=== PATIENT | male | born 1995 | race Caucasian/White ===

== ENCOUNTER 2018-05-24 15:18 | Emergency (ER) | payer BC, OTHER, MEDICAID ==
[~2018-05-24] VITALS: Ht 182.9 cm; Wt 70.9 kg
[2018-05-24 15:25] VITALS: Ht 182.9 cm; Wt 70.9 kg
[2018-05-24 15:48] LABS: BASOPHILS 0.8 % (0-2); EOSINOPHILS 3.4 % (0-7); HEMOGLOBIN 19.2 g/dL (13.5-17.5); IMMATURE GRANULOCYTES 0.3 % (0-5); LYMPHOCYTES 21.9 % (15-50); MCH 31.8 pg (26.0-34.0); MCHC 36.9 g/dL (31.0-37.0); MCV 86.1 fL (80.0-100.0); MEAN PLATELET VOLUME 8.9 fL (7.4-10.4); MONOCYTES 8.2 % (2-11); NEUTROPHILS 65.4 % (40-80); PLATELET COUNT 230 10x3/uL (130-400); RBC 6.04 10x6/uL (4.20-6.10); RDW 13.7 % (11.5-14.5)
[2018-05-24 16:01] LABS: APTT 29.4 SECONDS (22.8-39.4); PROTIME 12.8 SECONDS (11.6-15.0)
[2018-05-24 16:03] LABS: D-DIMER-QUANTITATIVE < 0.27 ug/mLFEU (0.20-0.54)
[2018-05-24 16:04] LABS: ALBUMIN 4.6 g/dL (3.4-5.0); ALKALINE PHOSPHATASE 95 U/L (46-116); ALT (SGPT) 27 U/L (10-68); BILIRUBIN - TOTAL 1.98 mg/dL (0.2-1.3); CALC OSMOLALITY 277 mosm/kg (275-300); CALCIUM 9.6 mg/dL (8.5-10.1); CARBON DIOXIDE 29.5 mmol/L (21.0-32.0); CHLORIDE - SERUM 101 mmol/L (98-107); CREATININE - SERUM 0.9 mg/dL (0.6-1.3); GLUCOSE 87 mg/dL (74-106); POTASSIUM - SERUM 3.5 mmol/L (3.5-5.1); PROTEIN - SERUM 8.7 g/dL (6.4-8.2); SODIUM 141 mmol/L (136-145); UREA NITROGEN 7 mg/dL (7-18); eGFR NON AFRICAN AMERICAN > 90 mL/min (90-120)
[2018-05-24 16:30] LABS: CKMB 0.9 U/L (0.0-3.6); CREATINE KINASE 122 UL (21-232); MAGNESIUM - SERUM 2.1 mg/dL (1.8-2.4)
[2018-05-24 16:44] LABS: TROPONIN-I < 0.017 ng/mL (0.000-0.060)
[2018-05-24] MEDS ORDERED: OMEPRAZOLE40 MG PO (18:56)
[2018-05-24 19:32] VITALS: BP 161/102
== END 2018-05-24 19:34 | disposition home or self-care (01) ==
LOC: D.ER 15:18
PROVIDERS: Family Medicine
DX: R07.9 Chest pain, unspecified (principal); R53.83 Other fatigue; K21.9 Gastro-esophageal reflux disease without esophagitis; F17.200 Nicotine dependence, unspecified, uncomplicated

== ENCOUNTER 2018-06-12 10:17 | Emergency (ER) | payer BC, MEDICAID ==
[~2018-06-12] VITALS: Ht 182.9 cm; Wt 68.2 kg
[~2018-06-12 10:17] MED LIST: OMEPRAZOLE40 MG PO
[2018-06-12 10:21] VITALS: Ht 182.9 cm; Wt 68.2 kg
[2018-06-12] MEDS ORDERED: HYZAAR 100-25 T1 TAB PO (10:23)
[2018-06-12 10:58] LABS: BASOPHILS 0.4 % (0-2); EOSINOPHILS 1.8 % (0-7); HEMATOCRIT 48.3 % (42.0-54.0); IMMATURE GRANULOCYTES 0.3 % (0-5); LYMPHOCYTES 23.5 % (15-50); MCH 31.9 pg (26.0-34.0); MCHC 37.3 g/dL (31.0-37.0); MCV 85.5 fL (80.0-100.0); MEAN PLATELET VOLUME 8.8 fL (7.4-10.4); MONOCYTES 1.9 % (2-11); NEUTROPHILS 72.1 % (40-80); PLATELET COUNT 210 10x3/uL (130-400); RBC 5.65 10x6/uL (4.20-6.10); RDW 12.9 % (11.5-14.5)
[2018-06-12 11:11] LABS: ALKALINE PHOSPHATASE 85 U/L (46-116); ALT (SGPT) 43 U/L (10-68); CALC OSMOLALITY 270 mosm/kg (275-300); CALCIUM 8.3 mg/dL (8.5-10.1); CARBON DIOXIDE 31.7 mmol/L (21.0-32.0); CHLORIDE - SERUM 100 mmol/L (98-107); GLUCOSE 83 mg/dL (74-106); POTASSIUM - SERUM 3.4 mmol/L (3.5-5.1); PROTEIN - SERUM 7.6 g/dL (6.4-8.2); SODIUM 136 mmol/L (136-145); UREA NITROGEN 12 mg/dL (7-18); eGFR NON AFRICAN AMERICAN > 90 mL/min (90-120)
[2018-06-12 11:16] LABS: UDS - AMPHET NEGATIVE QUAL (NEGATIVE); UDS - BARB NEGATIVE QUAL (NEGATIVE); UDS - BENZO NEGATIVE QUAL (NEGATIVE); UDS - COCAINE NEGATIVE QUAL (NEGATIVE); UDS - OPIATE NEGATIVE QUAL (NEGATIVE); UDS - PCP NEGATIVE QUAL (NEGATIVE); UDS - THC NEGATIVE QUAL (NEGATIVE)
[2018-06-12 11:19] LABS: APPEARANCE CLEAR (CLEAR); BILIRUBIN NEGATIVE (NEGATIVE); COLOR DK YELLOW (YELLOW); GLUCOSE NEGATIVE (NEGATIVE); KETONE NEGATIVE (NEGATIVE); NITRITE NEGATIVE (NEGATIVE); PROTEIN TRACE mg/dL (NEGATIVE); SPECIFIC GRAVITY 1.015 (1.005-1.020); UROBILINOGEN NORMAL (NORMAL)
[2018-06-12 11:20] LABS: BACTERIA FEW /hpf (NONE SEEN); EPITHELIAL CELLS 0-5 /hpf (0-5); MUCUS >1+ /lpf (NONE SEEN); RED CELLS - URINE 0-5 /hpf (0-5)
[2018-06-12] MEDS ORDERED: ROBAXIN-750750 MG PO (14:19)
[2018-06-12] MEDS ORDERED: VOLTAREN75 MG PO (14:19)
[2018-06-12] MEDS ORDERED: AUGMENTIN 875-11 TAB PO (14:26)
[2018-06-12 16:00] VITALS: BP 114/61
== END 2018-06-12 16:19 | disposition home or self-care (01) ==
LOC: D.ER 10:17
PROVIDERS: Emergency Medicine
DX: S01.112A Laceration without foreign body of left eyelid and periocular area, initial encounter (principal); V86.59XA Driver of other special all-terrain or other off-road motor vehicle injured in nontraffic accident, initial encounter; Y93.89 Activity, other specified; Y92.89 Other specified places as the place of occurrence of the external cause; M54.5 Low back pain; I10 Essential (primary) hypertension; S46.211A Strain of muscle, fascia and tendon of other parts of biceps, right arm, initial encounter; S02.40FA Zygomatic fracture, left side, initial encounter for closed fracture; K21.9 Gastro-esophageal reflux disease without esophagitis

== ENCOUNTER → 2018-06-16 14:54 | Outpatient (CLI) | payer BC ==
[2018-06-12 10:21] VITALS: BMI 20.4
[~2018-06-16 14:54] MED LIST changes: +AUGMENTIN 875-11 TAB PO; +HYZAAR 100-25 T1 TAB PO; +ROBAXIN-750750 MG PO; +VOLTAREN75 MG PO
== END | disposition home or self-care (01) ==
LOC: D.MRI 14:54
DX: S46.211A Strain of muscle, fascia and tendon of other parts of biceps, right arm, initial encounter (principal)

== ENCOUNTER 2019-07-13 11:38 | Emergency (ER) | payer BC ==
[~2019-07-13] VITALS: Ht 182.9 cm; Wt 69.5 kg
[2019-07-13 11:49] VITALS: Ht 182.9 cm; Wt 69.5 kg
[2019-07-13 12:08] LABS: BASOPHILS 0.9 % (0-2); EOSINOPHILS 2.7 % (0-7); HEMATOCRIT 43.6 % (42.0-54.0); HEMOGLOBIN 16.1 g/dL (13.5-17.5); IMMATURE GRANULOCYTES 0.2 % (0-5); LYMPHOCYTES 18.4 % (15-50); MCH 31.7 pg (26.0-34.0); MCHC 36.9 g/dL (31.0-37.0); MCV 85.8 fL (80.0-100.0); MEAN PLATELET VOLUME 8.5 fL (7.4-10.4); MONOCYTES 7.8 % (2-11); PLATELET COUNT 193 10x3/uL (130-400); RBC 5.08 10x6/uL (4.20-6.10); RDW 12.4 % (11.5-14.5); WBC 9.3 10x3/uL (4.8-10.8)
[2019-07-13 12:33] LABS: ALBUMIN 4.3 g/dL (3.4-5.0); ALKALINE PHOSPHATASE 72 U/L (46-116); ALT (SGPT) 19 U/L (10-68); CALC OSMOLALITY 282 mosm/kg (275-300); CALCIUM 8.9 mg/dL (8.5-10.1); CARBON DIOXIDE 27.9 mmol/L (21.0-32.0); CHLORIDE - SERUM 102 mmol/L (98-107); CREATININE - SERUM 0.8 mg/dL (0.6-1.3); GLUCOSE 96 mg/dL (74-106); POTASSIUM - SERUM 3.4 mmol/L (3.5-5.1); PROTEIN - SERUM 7.2 g/dL (6.4-8.2); SODIUM 142 mmol/L (136-145); UREA NITROGEN 13 mg/dL (7-18); eGFR NON AFRICAN AMERICAN > 90 mL/min (90-120)
[2019-07-13 12:40] LABS: APTT 31.4 SECONDS (22.8-39.4); INR 1.13 (0.85-1.17); PROTIME 13.9 SECONDS (11.6-15.0)
[2019-07-13 12:46] LABS: CKMB 0.4 U/L (0.0-3.6); CREATINE KINASE 103 UL (21-232); MAGNESIUM - SERUM 2.1 mg/dL (1.8-2.4); TROPONIN-I < 0.017 ng/mL (0.000-0.060)
[2019-07-13 14:00] VITALS: BP 138/86
== END 2019-07-13 14:10 | disposition home or self-care (01) ==
LOC: D.ER 11:38
PROVIDERS: Emergency Medicine
DX: R07.9 Chest pain, unspecified (principal); Q24.9 Congenital malformation of heart, unspecified

== ENCOUNTER → 2020-06-03 13:47 | Outpatient (CLI) | payer BC ==
[2019-07-13 11:49] VITALS: BMI 20.8
--- NOTE | 2020-06-05 08:18 | EC ---
PATIENT:KYLE VILLA DATE OF SERVICE: 06/03/20 SEX: M MEDICAL RECORD: [id number] DATE OF : [birth year] LOCATION:[facility] AGE OF PATIENT: 24 ADMISSION DATE: 06/03/20 REFERRING PHYSICIAN: INTERPRETING PHYSICIAN: ADALI ABRAHAM MD ECHOCARDIOGRAM REPORT ECHO CHARGES 4 ECHO COMPLETE Date: 06/03/20 CLINICAL DIAGNOSIS: CHEST PAIN,DIZZY/HTN/SOB HX OF ASD REPAIR ECHOCARDIOGRAPHIC MEASUREMENTS (adult normal given) AC root (d.<3.7cm) 3.4 cm LV Septum d (<1.2 cm> 1.1 cm Valve Excursion 1.9 cm LV Septum (systole) 1.5 cm Left Atria (s.<4.0cm> 4.1 cm LVPW d(<1.2cm) 1.4 cm RV (d.<2.3cm) 3.7 cm LVPW (sytole) 1.5 cm LV diastole(<5.6CM) 5.5 cm MV E-F(>70mm/sec) cm LV systole 4.2 cm LVOT Diameter 2.3 cm MV exc.(>10mm) 2.5 cm Est.ejection fraction (50-75%) % DOPPLER: LVIT cm/sec A 85.0 cm/sec E 103.0 cm/sec LA cm/sec RVSP 30 mmHg LVOT 109 cm/sec AOP1/2T m/s Asc. Ao 138 cm/sec RVOT 71 cm/sec RA cm/sec PA 132 cm/sec AV Gradient Peak 7.64 mmHg AV Mean 3.86 mmHg AV Area 3.3 cm MV Gradient Peak 4.09 mmHg MV Mean 2.14 mmHg MV Area cm COMMENTS: Ssn/Ssbn Weapons Equipment Operator: 2 CARMELO FRANKLIN Last Turner: 3 Dr. Nation TAPE# PACS Pericardial Effusion N DATE OF SERVICE: Adequate 2D, color flow imaging, spectral Doppler, and M-Mode. No LVH. LV internal dimension is normal. Wall motion is normal. EF is greater than or equal to 55%. Aortic valve is tricuspid. No evidence of stenosis by Doppler interrogation. Left atrium is upper limits of normal 4.1 cm. Mitral valve shows no prolapse. Trivial MR. Right-sided chambers are grossly normal. Mild TR. Multiple color flow images and Doppler pattern across the atrial septum show an intact atrial septum, status post repair. ECHOCARDIOGRAM REPORT [id number] KYLE VILLA TRANSINT:[id number] Voice Confirmation ID: [id number] DOCUMENT ID: [id number] ADALI ABRAHAM MD at 0818 CC: [id number] DICTATION DATE: 06/04/20 161 MACHINIST FIRST CLASS: 06/04/20 2109 DEP CLI 06/03/20 [place] [id number]
--- NOTE | 2020-06-05 08:18 | ST ---
PATIENT:KYLE VILLA MEDICAL RECORD: [id number] SEX: M LOCATION:[facility] ORDER #: ADMISSION DATE: 06/03/20 AGE OF PATIENT: 24 REFERRING PHYSICIAN: INTERPRETING PHYSICIAN: ADALI ABRAHAM MD DATE OF SERVICE: 06/03/2020 PROCEDURE: Treadmill stress test. Baseline ECG is normal. Exercised for 9 minutes on Cabrera protocol. Maximum heart rate of 136 beats per minute, less than 85% of maximum predicted. No ECG changes of ischemia. No symptoms of ischemia. Normal blood pressure response to exercise. No arrhythmias noted. Fair exercise tolerance for age. TRANSINT:[id number] Voice Confirmation ID: [id number] DOCUMENT ID: [id number] ADALI ABRAHAM MD at 0818 CC: [id number] DICTATION DATE: 06/04/20 1309 PIN MACHINE OPERATOR: 06/05/20 0241 DEP CLI 06/03/20 [place] [id number] [place] [address]
== END | disposition home or self-care (01) ==
LOC: D.HCCECHO 13:47
PROVIDERS: ATTEND Internal Medicine Interventional Cardiology
DX: I10 Essential (primary) hypertension (principal); R07.9 Chest pain, unspecified